=== PATIENT | female | born 1955 | race Caucasian/White ===

== ENCOUNTER 2025-01-15 17:22 | Emergency (ER) | payer MEDICARE ==
[2025-01-15] MEDS ORDERED: HYDROcodone/Acetaminophen 5/325 mg Tablet ONE (17:49)
== END 2025-01-15 19:15 | disposition home or self-care (01) ==
LOC: CSHERS 17:22
DX: S42.214A Unspecified nondisplaced fracture of surgical neck of right humerus, initial encounter for closed fracture (principal); W18.31XA Fall on same level due to stepping on an object, initial encounter; Y93.01 Activity, walking, marching and hiking; Y92.481 Parking lot as the place of occurrence of the external cause
CPT/HCPCS: 70450; 72125